=== PATIENT | female | born 1985 | race Caucasian/White ===

== ENCOUNTER 2017-03-14 21:29 | Emergency (ER) | payer OTHER ==
[2017-03-15 00:38] VITALS: BP 133/76
== END 2017-03-15 00:38 | disposition home or self-care (01) ==
LOC: ED 21:29
DX: S66.911A Strain of unspecified muscle, fascia and tendon at wrist and hand level, right hand, initial encounter (principal); M79.631 Pain in right forearm; M25.521 Pain in right elbow; M79.641 Pain in right hand; W01.0XXA Fall on same level from slipping, tripping and stumbling without subsequent striking against object, initial encounter; Y93.89 Activity, other specified; Y99.8 Other external cause status; Y92.89 Other specified places as the place of occurrence of the external cause

== ENCOUNTER 2018-07-25 00:10 | Emergency (ER) | payer OTHER ==
[~2018-07-25] VITALS: Ht 157.5 cm; Wt 91.4 kg
[2018-07-25 00:13] VITALS: Ht 157.5 cm; Wt 91.4 kg
[2018-07-25 01:02] VITALS: BP 122/76
== END 2018-07-25 01:03 | disposition home or self-care (01) ==
LOC: ED 00:10
DX: S63.91XA Sprain of unspecified part of right wrist and hand, initial encounter (principal); W18.39XA Other fall on same level, initial encounter; Y93.89 Activity, other specified; Y92.89 Other specified places as the place of occurrence of the external cause; Y99.8 Other external cause status
CPT/HCPCS: A4570; J1885; Q0092

== ENCOUNTER 2019-01-12 01:57 | Emergency (ER) | payer OTHER ==
[~2019-01-12] VITALS: Ht 154.9 cm; Wt 91.2 kg
[2019-01-12 02:08] VITALS: BP 119/77; Ht 154.9 cm; Wt 91.2 kg
== END 2019-01-12 05:15 | disposition home or self-care (01) ==
LOC: ED 01:57
DX: S80.02XA Contusion of left knee, initial encounter (principal); W20.8XXA Other cause of strike by thrown, projected or falling object, initial encounter; Y93.89 Activity, other specified; Y92.89 Other specified places as the place of occurrence of the external cause; Y99.8 Other external cause status